=== PATIENT | female | born 1980 | race Caucasian/White ===

== ENCOUNTER 2016-11-27 07:37 | Emergency (ER) | payer OTHER ==
[~2016-11-27 07:37] MED LIST: CIPRO PO; DIFLUCAN PO; FLAGYL PO; NO MEDICATIONS
[2016-11-27 08:06] LABS: URINE SOURCE CLEAN CATCH
[2016-11-27 08:09] LABS: URINE APPEARANCE CLOUDY; URINE BLOOD 3+ (NEG); URINE COLOR YELLOW; URINE GLUCOSE NEG (NORM); URINE KETONE 1+ (NEG); URINE LEUKOCYTE ESTERASE 3+ (NEG); URINE NITRATE NEG (NEG); URINE PH 5.5 (5-8); URINE PROTEIN 2+ (NEG); URINE SPECIFIC GRAVITY >=1.030 (1.003-1.035); URINE UROBILINOGEN 0.2 MG/DL (NORM)
[2016-11-27 08:13] LABS: MICRO INDICATED? YES; URINE BILIRUBIN NEG (NEG)
[2016-11-27 08:18] LABS: CULTURE INDICATED? YES; URINE BACTERIA 2+ (NEG); URINE WBC INNUM /[HPF] (0-5)
== END 2016-11-27 08:28 | disposition home or self-care (01) ==
LOC: SED 07:37
PROVIDERS: Emergency Medicine
DX: N39.0 Urinary tract infection, site not specified (principal); Z88.0 Allergy status to penicillin; F17.210 Nicotine dependence, cigarettes, uncomplicated
CPT/HCPCS: 81003; 84703; 87086; 99283